=== PATIENT | male | born 1950 | race Caucasian/White ===

== ENCOUNTER 2018-04-25 13:54 | Emergency (ER) | payer MEDICARE, SELFPAY ==
[2018-04-25 14:01] VITALS: BP 117/78; PULSE 78; RESP 14; TEMP 36.3; O2SAT 100
--- NOTE | 2018-04-25 15:38 | ED.EYEPROB ---
HPI - Eye Problem <MATI Saini - Last Filed: 04/25/18 21:58> General Chief complaint: Eye Problems Stated complaint: eye lids swelling and redness and spreading Time Seen by Provider: 04/25/18 14:14 Source: patient Mode of arrival: ambulatory Limitations: no limitations History of Present Illness HPI Narrative: 67-year-old healthy male that is a nonsmoker for complaint of redness to his left lower eyelid over the past couple of days. He denies any trauma to the area. No drainage from left eye. He does not wear contacts. No fevers no chills. He denies any visual changes. Redness and swelling is limited to the left lower eyelid. No other concerns or complaints at this timeframe. Related Data Home Medications Medication Instructions Recorded Confirmed aspirin 325 mg PO DAILY 04/25/18 04/25/18 Allergies Allergy/AdvReac Type Severity Reaction Status Date / Time No Known Drug Allergies Allergy Verified 04/25/18 14:04 Review of Systems <MATI Saini - Last Filed: 04/25/18 21:58> Constitutional Denies chills, Denies fever(s), Denies lethargy and Denies weakness Eyes Comments: Swelling to left lower eyelid ENT Ears, Nose, Mouth, and Throat: Denies change in voice, Denies neck pain and Denies sore throat Cardiovascular Denies chest pain, Denies irregular heart rhythm, Denies lightheadedness, Denies palpitations, Denies dyspnea, Denies dyspnea on exertion and Denies orthopnea Respiratory Denies cough, Denies dyspnea, Denies dyspnea on exertion and Denies wheezing Gastrointestinal Gastrointestinal: Denies abdominal pain, Denies change in bowel habits, Denies diarrhea, Denies nausea and Denies vomiting Genitourinary Denies hematuria, Denies flank pain, Denies urinary incontinence and Denies urinary urgency Musculoskeletal Denies neck pain Integumentary/Breasts Denies pruritus, Denies erythema, Denies rash and Denies wounds Neurologic Denies confusion and Denies weakness Psychiatric Denies anxiety, Denies confusion, Denies depression, Denies homicidal ideation and Denies suicidal ideation Endocrine Denies palpitations Hematologic/Lymphatic Denies easy bruising Allergic/Immunologic Denies wheezing PFSH <MATI Saini - Last Filed: 04/25/18 21:58> Social History Smoking Status: Never smoker Social History Smoking Status: Never smoker Exam <MATI Saini - Last Filed: 04/25/18 21:58> Initial Vital Signs Initial Vital Signs: Vital Signs Temperature 97.4 F L 04/25/18 14:01 Pulse Rate 78 04/25/18 14:01 Respiratory Rate 14 04/25/18 14:01 Blood Pressure 117/78 04/25/18 14:01 Pulse Oximetry 100 04/25/18 14:01 Const General: cooperative and well developed Nutritional Appearance: well nourished Orientation: alert, awake, oriented x3 and not confused HENMT Mouth: oral mucosae normal, oropharynx normal and moist mucous membranes Eyes General: appearance normal, both eyes and all related structures Eyelids: eyelid abnormality (Stye to left lower eyelid) Conjunctivae: conjunctivae normal Sclera: sclerae normal Pupils: PERRL EOM: EOM intact bilaterally Resp Effort & Inspection: normal respiratory effort, able to speak in complete sentences, no respiratory distress and no use of accessory muscles Auscultation: clear to auscultation bilaterally, no rales, no rhonchi and no wheezes Cardio Rate: regular rate Rhythm: regular rhythm Heart Sounds: no click, no gallops, no murmurs and no rubs Pulses: normal peripheral pulses Skin General: no rashes or lesions noted, No jaundice and No petechiae Neuro General: alert, oriented x3, gait normal and no focal motor deficits Speech: speech normal <Roberto Morgan DO - Last Filed: 04/28/18 07:07> Initial Vital Signs Initial Vital Signs: Vital Signs Temperature 97.4 F L 04/25/18 14:01 Pulse Rate 78 04/25/18 14:01 Respiratory Rate 14 04/25/18 14:01 Blood Pressure 117/78 04/25/18 14:01 Pulse Oximetry 100 04/25/18 14:01 Course <MATI Saini - Last Filed: 04/25/18 21:58> Vital Signs - 8 hr 04/25/18 14:01 04/25/18 17:30 Temperature 97.4 F L Pulse Rate 78 77 Respiratory Rate 14 16 Blood Pressure 117/78 Blood Pressure [Left Arm] 116/88 Pulse Oximetry 100 100 <Roberto Morgan DO - Last Filed: 04/28/18 07:07> Vital Signs - 8 hr 04/25/18 14:01 04/25/18 17:30 Temperature 97.4 F L Pulse Rate 78 77 Respiratory Rate 14 16 Blood Pressure 117/78 Blood Pressure [Left Arm] 116/88 Pulse Oximetry 100 100 MDM - Eye Problem <MATI Saini - Last Filed: 04/25/18 21:58> MDM Narrative Medical decision making narrative: Sinus symptoms presents type 2 left lower eyelid. Conservative care with warm moist compresses several times a day over the next few days. Follow up with primary care provider later this week. For any worsening symptoms return emergency room. Discharge Plan Departure Patient Disposition: Home Clinical Impression: Hordeolum externum of left lower eyelid Discharge Date/Time: 04/25/18 17:32 Interventions: ED Discharge Assessment Last Done: 04/25/18 17:32 Instructions: DI for Hordeolum Activity Restrictions/Additional Instructions: Sinus symptoms presents as tied to the left eye. Use warm moist compresses several times a day over the next couple of days to help it drain. Follow up with primary care provider later this week for re-evaluation. May use [id number] Tylenol or Motrin as needed for any discomfort. For any worsening symptoms return to the emergency room. Prescriptions: No Action aspirin 325 mg Tablet 325 mg PO DAILY RF: 0 Referrals: [facility] [Provider Group] <Roberto Morgan DO - Last Filed: 04/28/18 07:07> Cosign ED Attending Ivonne Attestation: I was available for consultation during this patient's emergency department encounter
[2018-04-25 17:30] VITALS: BP 116/88; PULSE 77; RESP 16; O2SAT 100
== END 2018-04-25 17:32 | disposition home or self-care (01) ==
PROVIDERS: Emergency Provider Nurse Practitioner Family
DX: H00.015 Hordeolum externum left lower eyelid (principal)
CPT/HCPCS: 99283